=== PATIENT | female | born 1960 | race Caucasian/White ===

== ENCOUNTER 2021-08-20 09:55 | Day surgery (SDC) | payer BC ==
[~2021-08-20] VITALS: Ht 162.6 cm; Wt 80.2 kg
[~2021-08-20 09:55] MED LIST: HYDROCHLOROTH12.5 MG PO; Lopressor 25 mg25 MG PO; VENL150ER PO; VITAMIN D31000 UNI1 PO
== END 2021-08-20 13:53 | disposition home or self-care (01) ==
LOC: ORSCSDS 09:55
PROVIDERS: Orthopaedic Surgery
PROC: 0LX80ZZ Transfer Left Hand Tendon, Open Approach (ICD-10-PCS; principal; 2021-08-20 11:15)
PROC: 0RST0ZZ Reposition Left Carpometacarpal Joint, Open Approach (ICD-10-PCS; principal; 2021-08-20 11:15)
DX: M18.12 Unilateral primary osteoarthritis of first carpometacarpal joint, left hand (principal); I10 Essential (primary) hypertension; F17.210 Nicotine dependence, cigarettes, uncomplicated; Z79.899 Other long term (current) drug therapy
CPT/HCPCS: A9270; C1713; J0690; J1100; J1885; J2250; J2405; J2704; J2795; J3010; J7120